=== PATIENT | female | born 1990 | race Caucasian/White ===

== ENCOUNTER 2020-08-09 06:57 | Emergency (ER) | payer OTHER ==
[~2020-08-09] VITALS: Ht 160 cm; Wt 57.6 kg
[2020-08-09 07:00] VITALS: BP 121/78
--- NOTE | 2020-08-09 07:04 | NUR ---
TO BED # 11 AMBULATORY
--- NOTE | 2020-08-09 07:37 | NUR ---
C/O N/V X5DAYS, PATIENT STATES SHE IS ON HER MENSTRUAL CYCLE AND THIS HAS BEEN ONGOING FOR HER LAST THREE MENSTRUAL CYCLES BUT IS INCREASED TODAY. DENIES PAIN, N/V AT THIS TIME. BED IN LOWEST POSITION, BED RAIL UP X1.
[2020-08-09] MEDS ORDERED: LORazepam 0.5 MG TAB PO ONE (07:40)
--- NOTE | 2020-08-09 08:36 | NUR ---
Ultrasound at bedside
[2020-08-09 10:00] VITALS: BP 118/74
--- NOTE | 2020-08-09 10:00 | NUR ---
Patient discharged with v/s stable. Written and verbal after care instructions given and explained. Patient alert, oriented and verbalized understanding of instructions. Ambulatory with steady gait. All questions addressed prior to discharge. ID band removed. Patient advised to follow up with PMD. Rx of Ativan 05mg and Reglan 5mg given. Patient educated on indication of medication including possible reaction and side effects. Opportunity to ask questions provided and answered.
== END 2020-08-09 10:00 | disposition home or self-care (01) ==
LOC: MED 06:57
DX: R11.2 Nausea with vomiting, unspecified (principal)
CPT/HCPCS: 76856; 81002; 81025; 99284

== ENCOUNTER 2021-02-16 01:20 | Emergency (ER) | payer OTHER ==
[~2021-02-16] VITALS: Ht 160 cm; Wt 58.1 kg
[2021-02-16 01:25] VITALS: BP 150/80
--- NOTE | 2021-02-16 01:25 | NUR ---
TO BED AMBULATORY
--- NOTE | 2021-02-16 01:40 | NUR ---
ERMD AT BEDSIDE.
--- NOTE | 2021-02-16 01:40 | NUR ---
PT BIB SELF FOR C/O N/V X 2 DAYS R/T ANXIETY. PT STATES SHE HAS A LOT OF FAMILY ISSUES GOING ON AT HOME WHICH CAUSES HER ANXIETY, LEADING TO N/V. PT REPORTS SHE IS NEWLY DX WITH ANXIETY 2 WEEKS AGO AND HAS SEEN A PHSYCHIATRIST WHO HAS GIVEN HER COPING TOOLS. PT REPORTS HE N/V IS "DRIVEN BY EMOTIONS." PT DENIES BEING RX MEDICATION. PT REPORTS SHE FEELS SAFE AT HOME. PT DENIES POSSIBILTY OF D/T BEING ON CONTROL. PT REPORTS TRYING PEPTO-BISMOL WITH NO RELIEF. SEE COMPLETE ASSESSMENT FOR FURTHER DETAILS. MED HX: ANXIETY ALLERGIES: NKA
[2021-02-16] MEDS ORDERED: METOCLOPRAMIDE 10 MG TAB PO ONE (01:45)
[2021-02-16] MEDS ORDERED: ONDANSETRON 4 MG ODT PO ONE (01:45)
[2021-02-16] MEDS ORDERED: diphenhydrAMINE 50 MG CAP PO ONE (01:45)
--- NOTE | 2021-02-16 01:59 | NUR ---
PT REPORTS HER NAUSEA HAS IMPROVED, AND SHE ONLY FEELS "A LITTLE BIT."
[2021-02-16] MEDS ORDERED: METO-485 PO (02:54)
[2021-02-16] MEDS ORDERED: ONDA4TAB PO (02:54)
[2021-02-16 03:03] VITALS: BP 150/80
--- NOTE | 2021-02-16 03:03 | NUR ---
Patient discharged with v/s stable. Written and verbal after care instructions given and explained. Patient alert, oriented and verbalized understanding of instructions. Ambulatory with steady gait. All questions addressed prior to discharge. ID band removed. Patient advised to follow up with PMD. Rx of REGLAN AND ZOFRAN given. Patient educated on indication of medication including possible reaction and side effects. Opportunity to ask questions provided and answered. CONFIRMED PT NOT DRIVING SELF.
== END 2021-02-16 03:03 | disposition home or self-care (01) ==
LOC: MED 01:20
DX: R11.2 Nausea with vomiting, unspecified (principal); F41.9 Anxiety disorder, unspecified; Z79.899 Other long term (current) drug therapy
CPT/HCPCS: 99284; J8597; Q0162; Q0163